=== PATIENT | male | born 1975 | race Caucasian/White ===

== ENCOUNTER 2017-11-06 21:23 | Emergency (ER) | payer BC ==
[~2017-11-06] VITALS: Ht 182.9 cm; Wt 97.5 kg
[2017-11-06 21:25] VITALS: BP 146/101
[2017-11-06] MEDS ORDERED: HYDROCHLOROTH12.5 M2 ORAL (21:47)
[2017-11-06 21:50] VITALS: BP 142/99
--- NOTE | 2017-11-07 05:54 | Emergency Room Report ---
History of Present Illness General Chief Complaint: Hypertension Source: Patient Present Illness HPI 42-year-old male presents ED for evaluation. Patient states that earlier today he felt lightheaded and dizzy. Patient checked his blood pressure and states he was high. States systolic blood pressure was in the 160s. Patient states he no longer feels dizzy or lightheaded. Pressure in triage 146/101. Patient states he was told his blood pressure was borderline high by his PMD and was recommended diet/exercise. Patient denies chest pain or shortness of breath. Denies any headache. Denies any blurry vision. Denies nausea or vomiting. No other aggravating relieving factors. Denies any other associated symptoms Allergies: Coded Allergies: No Known Allergies (Unverified , 11/06/17) Patient History Past Medical History: HTN Past Surgical History: none Pertinent Family History: none Social History: Denies: smoking, alcohol use, drug use Immunizations: UTD Reviewed Nursing Documentation: PMH: Agreed, PSxH: Agreed Nursing Documentation-PMH Hx Hypertension: Yes Review of Systems All Other Systems: negative except mentioned in HPI Physical Exam Vital Signs Date Time Temp Pulse Resp B/P (MAP) Pulse Ox O2 Delivery O2 Flow Rate FiO2 11/06/17 21:25 98.0 74 18 146/101 98 Room Air 98.1 Sp02 EP Interpretation: reviewed, normal General Appearance: no apparent distress, alert, GCS 15, non-toxic Head: normocephalic, atraumatic Eyes: bilateral eye normal inspection, bilateral eye PERRL ENT: hearing grossly normal, normal pharynx, no angioedema, normal voice Neck: full range of motion, supple/symm/no masses Respiratory: chest non-tender, lungs clear, normal breath sounds, speaking full sentences Cardiovascular #1: regular rate, rhythm, no edema Cardiovascular #2: 2+ carotid (R), 2+ carotid (L), 2+ radial (R), 2+ radial (L) , 2+ dorsalis pedis (R), 2+ dorsalis pedis (L) Gastrointestinal: normal bowel sounds, non tender, soft, non-distended, no guarding, no rebound Rectal: deferred Genitourinary: normal inspection, no CVA tenderness Musculoskeletal: back normal, gait/station normal, normal range of motion, non- tender Neurologic: alert, oriented x3, responsive, motor strength/tone normal, sensory intact, speech normal Psychiatric: judgement/insight normal, memory normal, mood/affect normal, no suicidal/homicidal ideation Reflexes: 3+ bicep (R), 3+ bicep (L), 3+ tricep (R), 3+ tricep (L), 3+ knee (R) , 3+ knee (L) Skin: normal color, no rash, warm/dry, well hydrated Lymphatic: no adenopathy Medical Decision Making Diagnostic Impression: Primary Impression: Hypertension Qualified Codes: I10 - Essential (primary) hypertension ER Course Hospital Course 42-year-old male presents ED complaining of elevated BP, c/o dizziness Differential diagnoses include: hypertensive urgency, hypertensive emergency, arrythmia, VA/ACS Clinical course Patient placed on stretcher. After initial history, physical exam reveals male in no acute distress. Lungs clear. Abdomen soft. Heart sounds normal. No focal neurological deficits EKG - NSR, no acute ischemic changes interpreted by me repeat BP 142/99. Patient remains asymptomatic. I offered patient option for workup but patient declined stating that he would prefer to follow-up with his PMD. I gave patient prescription for low-dose hydrochlorothiazide in the event that he is unable to follow-up with his PMD I. I feel this is a highly complex case requiring extensive working including EKG/Rhythm strip, Xray/CT/US, Blood/urine lab work, repeat exams while in ED, and administration of strong opiates/narcotics for pain control, admission to hospital or close patient follow up. Diagnosis - hypertension Stable and discharged to home with Rx HCTZ. Instructed to followup with PMD. Return to ED if symptoms recur or worsen Last Vital Signs Date Time Temp Pulse Resp B/P (MAP) Pulse Ox O2 Delivery O2 Flow Rate FiO2 11/06/17 21:58 98.2 76 17 142/99 100 Room Air 98.1 Status: improved Disposition: HOME, SELF-CARE Condition: Stable Scripts Hydrochlorothiazide* (HYDROCHLOROTHIAZIDE*) 12.5 Mg Capsule 12.5 MG ORAL DAILY, #10 CAP Prov: STEPAN BUNCH M.D. 11/06/17 Referrals: NON PHYSICIAN (PCP) Patient Instructions: Hypertension, [id number] STEPAN BUNCH M.D. Nov 07, 2017 05:54
== END 2017-11-06 21:58 | disposition home or self-care (01) ==
LOC: EMR 21:42
DX: I10 Essential (primary) hypertension (principal)
CPT/HCPCS: 99283